=== PATIENT | female | born 1960 | race American Indian/Alaskan Native ===

== ENCOUNTER 2019-10-10 23:27 | Emergency (ER) | payer SELFPAY ==
[2019-10-11] MEDS ORDERED: ASPIRIN 325 MG TAB PO ONE (00:54)
[2019-10-11 01:20] LABS: Basophils % (Auto) 0.5 % (0.0-1.8); Eosinophils # (Auto) 0.2 K/mm3 (0.0-0.4); Eosinophils % (Auto) 1.9 % (0.0-4.3); Hematocrit 40.4 % (30.3-42.9); Hemoglobin 13.3 gm/dl (10.1-14.3); Lymphocytes % (Auto) 20.5 % (13.4-35.0); Mean Corpuscular HGB Conc 33 % (30-34); Mean Corpuscular Volume 85 fl (79-97); Monocytes # (Auto) 0.6 K/mm3 (0.0-0.8); Platelet Count 265 K/mm3 (140-440); Red Blood Count 4.76 M/mm3 (3.65-5.03); Red Cell Distribution Width 14.4 % (13.2-15.2)
--- NOTE | 2019-10-11 01:27 | XRay Report ---
CHEST 1 VIEW INDICATION: Chest Pain. COMPARISON: None FINDINGS: Support devices: None. Heart: Within normal limits. Lungs/Pleura: No acute air space or interstitial disease. Additional findings: None. IMPRESSION: 1. No acute findings. Signer Name: Gen Erickson MD Signed: 10/11/2019 1:22 AM Workstation Name: [id number]
[2019-10-11 01:41] LABS: BUN/Creatinine Ratio 14; Blood Urea Nitrogen 14 mg/dL (7-17); Calcium 9.8 mg/dL (8.4-10.2); Hemolysis Index 7
[2019-10-11] MEDS ORDERED: MORPHINE 4 MG/1 ML INJ IV ONE (02:31)
[2019-10-11] MEDS ORDERED: ONDANSETRON 4 MG/2 ML INJ IV ONE (02:31)
--- NOTE | 2019-10-11 02:36 | Emergency Department Report ---
ED Chest Pain HPI - General Chief Complaint: Chest Pain Stated Complaint: CHEST PAIN Time Seen by Provider: 10/11/19 02:25 Source: patient Mode of arrival: Ambulatory Limitations: No Limitations - History of Present Illness Initial Comments: Mr. Allan is a 59 yo female with hx of pneumonia who presents with persistent chest pressure "balling" up sensation since this afternoon 2 PM. [place] like gas radiating to right jaw. Worse when she bends forward. COugh resolved earlier this week. Has had nasal congestion and headache for the past week. Dx'd with pneumonia at OSH in [place]. No hx of DM, HTN, CAD. Sister had hx of heart murmur Father unknown medical hx Mother from breast CA MD Complaint: chest pain -: Gradual, This afternoon Onset: during rest Pain Location: substernal Severity: severe Quality: dull Consistency: constant Worsens With: other (bending over) - Related Data Previous Rx's Medication Instructions Recorded Last Taken Type Famotidine [Pepcid] 20 mg PO BID 30 Days #60 tablet 10/11/19 Unknown Rx Allergies Allergy/AdvReac Type Severity Reaction Status Date / Time No Known Allergies Allergy Verified 10/11/19 02:28 Heart Score - HEART Score History: Slightly suspicious EKG: Normal Age: 45-65 Risk factors: No known risk factors Troponin: < normal limit HEART Score: 1 ED Review of Systems ROS: Stated complaint: CHEST PAIN Other details as noted in HPI Comment: All other systems reviewed and negative Constitutional: denies: fever, malaise Respiratory: denies: cough, shortness of breath Cardiovascular: chest pain Gastrointestinal: denies: abdominal pain, nausea Neurological: headache ED Past Medical Hx - Past Medical History Previous Medical History?: Yes Additional medical history: Pneumonia - Surgical History Past Surgical History?: Yes Additional Surgical History: Back Surgery - Family History Family history: cancer, other (breast cancer mother) - Social History Smoking Status: Never Smoker Substance Use Type: None - Medications Home Medications: Home Medications Medication Instructions Recorded Confirmed Last Taken Type Famotidine [Pepcid] 20 mg PO BID 30 Days #60 tablet 10/11/19 Unknown Rx ED Physical Exam - General Limitations: No Limitations General appearance: alert, in no apparent distress - Head Head exam: Present: atraumatic, normocephalic - Eye Eye exam: Present: normal appearance - ENT ENT exam: Present: mucous membranes moist - Neck Neck exam: Present: normal inspection, full ROM - Respiratory Respiratory exam: Present: normal lung sounds bilaterally. Absent: respiratory distress, wheezes, rales, rhonchi - Cardiovascular Cardiovascular Exam: Present: normal rhythm, tachycardia, normal heart sounds. Absent: systolic murmur, diastolic murmur, rubs, gallop - GI/Abdominal GI/Abdominal exam: Present: soft, normal bowel sounds. Absent: distended, tenderness, guarding, rebound - Extremities Exam Extremities exam: Present: normal inspection - Back Exam Back exam: Present: normal inspection - Neurological Exam Neurological exam: Present: alert, oriented X3 - Psychiatric Psychiatric exam: Present: normal affect, normal mood - Skin Skin exam: Present: warm, dry, intact, normal color. Absent: rash ED Course Vital Signs 10/11/19 00:12 Temperature 97.9 F Pulse Rate 109 H Respiratory 18 Rate Blood Pressure 136/68 O2 Sat by Pulse 100 Oximetry ED Medical Decision Making - Lab Data Result diagrams: 10/11/19 00:58 10/11/19 00:58 Laboratory Results - last 24 hr 10/11/19 10/11/19 00:58 00:58 WBC 9.9 RBC 4.76 Hgb 13.3 Hct 40.4 MCV 85 MCH 28 MCHC 33 RDW 14.4 Plt Count 265 Lymph % (Auto) 20.5 [place] % (Auto) 6.0 Eos % (Auto) 1.9 Baso % (Auto) 0.5 Lymph # 2.0 [place] # 0.6 Eos # 0.2 Baso # 0.0 Seg Neutrophils % 71.1 H Seg Neutrophils # 7.1 Sodium 139 Potassium 5.2 H Chloride 101.2 Carbon Dioxide 25 Anion Gap 18 BUN 14 Creatinine 1.0 Estimated GFR > 60 BUN/Creatinine Ratio 14 Glucose 120 H Calcium 9.8 Troponin T < 0.010 - EKG Data EKG shows normal: sinus rhythm, axis, intervals, QRS complexes, ST-T waves Rate: tachycardia - EKG Data Interpretation: normal EKG (with the exception of tachycardia) - Radiology Data Radiology results: report reviewed Chest x-ray: No acute findings ct angio chest no acute findings no coronary embolism - Medical Decision Making Ms. Allan presents with persistent chest pain for the past 12 hours worse with bending forward. Atypical for ACS. PE PNA ruled out with CT angio of chest. Do not suspect pericarditis. Considerations: GERD, costochondritis, bronchitis Cardiology referral arranged. Recommended PCP f/u rx: famotidine HEart score 1 repeat HR 95 bpm prior to discharge Critical care attestation.: If time is entered above; I have spent that time in minutes in the direct care of this critically ill patient, excluding procedure time. ED Disposition Clinical Impression: Chest pain Disposition: DC-01 TO HOME OR SELFCARE Is pt being admited?: No Does the pt Need Aspirin: No Condition: Stable Instructions: Chest Pain (ED) Prescriptions: Famotidine [Pepcid] 20 mg PO BID 30 Days #60 tablet Referrals: NAOMIE MCCOY MD [Staff Physician] - 2-3 Days Forms: Work/School Release Form(ED)
--- NOTE | 2019-10-11 03:24 | Cat Scan Report ---
CTA chest with contrast INDICATION : chest pain tachycardia. TECHNIQUE: Axial imaging performed through the chest, with contrast bolus timing set to maximize opa cification of the pulmonary arteries. 3-plane MIP reformatted images were obtained. All CT scans at this location are performed using CT dose reduction for ALARA by means of automated exposure control. 100 mL of intravenous contrast administered. COMPARISON: None FINDINGS: Bolus: Contrast bolus timing is adequate. PTE: No filling defect is present to suggest PTE. Mediastinum: Heart and great vessels appear normal. No pathologic mediastinal adenopathy. Lungs: Lungs are clear. Upper abdomen: Limited imaging of the upper abdomen shows nothing acute. Bones: Degenerative changes in the spine with nothing acute. IMPRESSION: Negative for PTE. Clear lungs. Signer Name: Gen Erickson MD Signed: 10/11/2019 3:20 AM Workstation Name: [id number]
[2019-10-11 04:30] VITALS: BP 149/80
== END 2019-10-11 04:30 | disposition home or self-care (01) ==
LOC: ED 23:27
DX: R07.89 Other chest pain (principal); R05 Cough; R51 Headache; Z98.890 Other specified postprocedural states
CPT/HCPCS: 36415; 71045; 71275; 80048; 84484; 85025; 93005; 93010; 96374; 96375; 99285; J2270; J2405; Q9967